=== PATIENT | female | born 1990 | race Hispanic/Latino ===

== ENCOUNTER 2019-09-06 20:01 | Emergency (ER) | payer OTHER ==
[2019-09-06] MEDS ORDERED: ACETAMINOPHEN 325 MG TAB ONE (20:08)
== END 2019-09-06 21:15 | disposition home or self-care (01) ==
LOC: EDH 20:01
DX: S02.2XXA Fracture of nasal bones, initial encounter for closed fracture (principal); W22.8XXA Striking against or struck by other objects, initial encounter; Y93.89 Activity, other specified; Y92.89 Other specified places as the place of occurrence of the external cause; Y99.8 Other external cause status
CPT/HCPCS: 70160